=== PATIENT | female | born 1960 | race Caucasian/White ===

== ENCOUNTER 2016-08-18 11:11 | Outpatient (CLI) | payer OTHER | END 2016-08-18 11:12 | disposition home or self-care (01) | DX: R74.8 Abnormal levels of other serum enzymes (principal) ==

== ENCOUNTER 2016-08-27 11:23 | Outpatient (CLI) | payer OTHER | END 2016-08-27 11:24 | disposition home or self-care (01) | DX: R74.8 Abnormal levels of other serum enzymes (principal) ==

== ENCOUNTER 2016-08-27 11:24 | Outpatient (CLI) | payer OTHER | END 2016-08-27 11:25 | disposition home or self-care (01) | DX: Z12.31 Encounter for screening mammogram for malignant neoplasm of breast (principal) ==

== ENCOUNTER 2016-11-16 11:00 | Outpatient (CLI) | payer OTHER | END 2016-11-16 11:01 | disposition home or self-care (01) | DX: N39.0 Urinary tract infection, site not specified (principal) ==

== ENCOUNTER 2016-11-20 19:46 | Outpatient (CLI) | payer OTHER | END 2016-11-20 19:47 | disposition critical access hospital (66) | DX: R03.0 Elevated blood-pressure reading, without diagnosis of hypertension (principal) | CPT/HCPCS: A0425; A0427 ==

== ENCOUNTER 2016-11-20 20:07 | Emergency (ER) | payer OTHER ==
--- NOTE | 2016-11-20 20:45 | ED Physician Documentation ---
PD HPI CHEST PAIN - Stated complaint Stated Complaint: HIGH BP - Chief complaint Chief Complaint: Cardiac - History obtained from History obtained from: Patient - History of Present Illness Timing - onset: Enter time (18:30), Today Timing - onset during: Rest Timing - duration: Minutes Timing - details: Abrupt onset, Now resolved Pain level max: 8 Pain level now: 0 Quality: Pain Location: Substernal Radiation: Other (no radiation) Improved by: Nothing (resolved spontaneously) Worsened by: Other (no apparent exacerbating factors) Associated symptoms: Diaphoresis. No: Shortness of air, Nausea, Vomiting Similar symptoms before: Has not had sx before Recently seen: Not recently seen - Additional information Additional information: shortly after eating dinner, sudden onset substernal chest pain without exacerbating or ameliorating factors, resolved spontaneously within few minutes. Patient says she had unremarkable/negative nuclear stress test approximately 4 years ago. Review of Systems Constitutional: reports: Sweats. denies: Fever, Chills Cardiac: reports: Chest pain / pressure. 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 : None HEENT: None Psych: None Musculoskeletal: None Derm: None - Past Surgical History Past Surgical History: No - Present Medications Home Medications: Ambulatory Orders Medication Instructions Recorded Confirmed EPINEPHrine [Epipen] PRN 06/19/13 06/19/13 - Allergies Allergies/Adverse Reactions: Allergies Allergy/AdvReac Type Severity Reaction Status Date / Time peanut Allergy Severe Respiratory Verified 06/19/13 12:18 shellfish derived Allergy Severe Respiratory Verified 06/19/13 12:19 - Social History Does the pt smoke?: No Smoking Status: Never smoker Does the pt drink ETOH?: Yes Does the pt have substance abuse?: No - Immunizations Immunizations are current?: Yes PD ED PE NORMAL - Vitals Vital signs reviewed: Yes - General General: Alert and oriented X 3, No acute distress, Well developed/nourished - HEENT HEENT: Moist mucous membranes - Neck Neck: Supple, no meningeal sign - Cardiac Cardiac: RRR, No murmur, No gallop, No rub - Respiratory Respiratory: No respiratory distress, Clear bilaterally - Abdomen Abdomen: Soft, Non tender - Back Back: No CVA TTP - Derm Derm: Normal color, Warm and dry - Extremities Extremities: No edema Results - Vitals Vitals: Vital Signs - 24 hr 11/20/16 11/20/16 11/20/16 20:13 21:50 22:54 Temperature 37.2 C Heart Rate 70 64 89 Respiratory 18 16 16 Rate Blood Pressure 148/73 H 154/72 H 132/66 H O2 Saturation 98 98 99 Oxygen O2 Source Room air - Labs Labs: Laboratory Tests 11/20/16 11/20/16 11/20/16 21:15 21:15 21:15 WBC 6.0 RBC 4.60 Hgb 13.4 Hct 40.4 MCV 87.9 MCH 29.2 MCHC 33.2 RDW 12.3 Plt Count 255 MPV 9.5 Neut # 3.9 Lymph # 1.4 L [place] # 0.5 Eos # 0.1 Baso # 0.1 Absolute Nucleated RBC 0.00 Nucleated RBCs 0.0 Sodium 144 Potassium 3.6 Chloride 108 Carbon Dioxide 28 Anion Gap 8.0 BUN 15 Creatinine 0.6 Estimated GFR (MDRD) 103 Glucose 110 H Calcium 9.3 Total Bilirubin 0.5 AST 25 ALT 20 Alkaline Phosphatase 49 Troponin I < 0.04 Total Protein 6.9 Albumin 4.1 Globulin 2.8 Albumin/Globulin Ratio 1.5 Lipase 59 H - Rads (name of study) chest xray Radiology: Prelim report reviewed, See rad report PD MEDICAL DECISION MAKING - ED course Complexity details: reviewed results, re-evaluated patient, considered differential, d/w patient Departure - Departure Disposition: 01 Home, Self Care Clinical Impression: Chest pain Qualifiers: Chest pain type: unspecified Qualified Code(s): R07.9 - Chest pain, unspecified Hypertension Qualifiers: Hypertension type: essential hypertension Qualified Code(s): I10 - Essential ( primary) hypertension Condition: Good Instructions: ED Chest Pain Atypical Unkn Cause, ED HTN Established Comments: Follow up with your primary care physician: call to arrange for next available appointment Discharge Date/Time: 11/20/16 22:54
[2016-11-20 21:27] LABS: BASOPHILS # (AUTO) 0.1 10^3/uL (0.0-0.1); BASOPHILS % (AUTO) 1.2 %; EOSINOPHILS # (AUTO) 0.1 10^3/uL (0.0-0.7); EOSINOPHILS % (AUTO) 1.8 %; HCT - HEMATOCRIT 40.4 % (37.0-47.0); HGB - HEMOGLOBIN 13.4 g/dL (12.0-16.0); LYMPHOCYTES # (AUTO) 1.4 10^3/uL (1.5-3.5); LYMPHOCYTES % (AUTO) 23.5 %; MEAN CORPUSCULAR HEMOGLOBIN 29.2 pg (27.0-31.0); MEAN CORPUSCULAR HGB CONC 33.2 g/dL (32.0-36.0); MEAN CORPUSCULAR VOLUME 87.9 fL (81.0-99.0); MEAN PLATELET VOLUME 9.5 fL (7.9-10.8); MONOCYTES # (AUTO) 0.5 10^3/uL (0.0-1.0); MONOCYTES % (AUTO) 7.6 %; NEUTROPHILS # (AUTO) 3.9 10^3/uL (1.5-6.6); NEUTROPHILS % (AUTO) 65.9 %; RED CELL DISTRIBUTION WIDTH 12.3 % (12.0-15.0)
[2016-11-20 21:42] LABS: ALBUMIN/GLOBULIN RATIO 1.5 (1.0-2.2); BILIRUBIN,TOTAL 0.5 mg/dL (0.2-1.0); CALCIUM 9.3 mg/dL (8.5-10.3); CREATININE 0.6 mg/dL (0.4-1.0); POTASSIUM 3.6 mmol/L (3.5-5.0); TOTAL PROTEIN 6.9 g/dL (6.7-8.2)
--- NOTE | 2016-11-20 22:03 | XRAY Preliminary Report ---
Exam: XR Chest 2 View PA/LAT IMPRESSION: Normal 2-view chest radiography. [facility] SITE ID: [id number]
--- NOTE | 2016-11-20 22:06 | XRAY Report ---
EXAM: CHEST RADIOGRAPHY EXAM DATE: 11/20/2016 09:41 PM. CLINICAL HISTORY: Chest pain. COMPARISON: Chest 01/25/2007. TECHNIQUE: 2 views. FINDINGS: Lungs/Pleura: No focal opacities evident. No pleural effusion. No pneumothorax. Normal volumes. Mediastinum: Heart and mediastinal contours are unremarkable. Other: None. IMPRESSION: Normal 2-view chest radiography. [facility] Referring Provider Line: [phone] SITE ID: [id number]
[2016-11-20 22:55] VITALS: BP 132/66
== END 2016-11-20 22:54 | disposition home or self-care (01) ==
LOC: EDUNIT# → ED 20:07
DX: I10 Essential (primary) hypertension (principal); R07.9 Chest pain, unspecified
CPT/HCPCS: 36415; 71020; 80053; 83690; 84484; 85025; 93005; 99284

== ENCOUNTER 2016-11-25 17:51 | Outpatient (CLI) | payer OTHER | END 2016-11-25 17:52 | disposition home or self-care (01) | DX: D25.2 Subserosal leiomyoma of uterus (principal); R10.2 Pelvic and perineal pain; R39.15 Urgency of urination ==

== ENCOUNTER 2016-12-13 14:40 | Outpatient (CLI) | payer OTHER ==
[2016-12-13] MEDS ORDERED: IOPAMIDOL-300 100 ML VIAL IVP ONE (16:16)
[2016-12-13] MEDS ORDERED: IOPAMIDOL-300 50 ML VIAL PO ONE (16:16)
== END 2016-12-13 14:41 | disposition home or self-care (01) ==
DX: R10.13 Epigastric pain (principal); R10.32 Left lower quadrant pain
CPT/HCPCS: 74177; Q9967

== ENCOUNTER 2016-12-18 12:09 | Emergency (ER) | payer OTHER ==
--- NOTE | 2016-12-18 12:45 | ED Physician Documentation ---
PD HPI CHEST PAIN - Stated complaint Stated Complaint: HIGH BP - Chief complaint Chief Complaint: Cardiac - History obtained from History obtained from: Patient, Family - History of Present Illness Timing - onset: Other (Over the last few months she's had new-onset high blood pressure. She was started on lisinopril dose was rapidly increased. Today she has a mild headache and just doesn't feel well and she checked her blood pressure was 180/100 at home or so. She denies any new or different chest pain , she does have chronic reflux. No urinary complaints, dyspnea, or pedal edema. 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 : None HEENT: None Psych: None Musculoskeletal: None Derm: None - Past Surgical History Past Surgical History: No - Present Medications Home Medications: Ambulatory Orders Medication Instructions Recorded Confirmed EPINEPHrine [Epipen] PRN 06/19/13 06/19/13 Lisinopril 20 mg PO BID 12/18/16 12/18/16 - Allergies Allergies/Adverse Reactions: Allergies Allergy/AdvReac Type Severity Reaction Status Date / Time peanut Allergy Severe Respiratory Verified 06/19/13 12:18 shellfish derived Allergy Severe Respiratory Verified 06/19/13 12:19 Penicillins Allergy Rash Verified 12/18/16 12:18 - Social History Does the pt smoke?: No Smoking Status: Never smoker Does the pt drink ETOH?: Yes Does the pt have substance abuse?: No - Immunizations Immunizations are current?: Yes - POLST Patient has POLST: No PD ED PE NORMAL - Vitals Vital signs reviewed: Yes (BP 155/91 on my eval) - General General: Alert and oriented X 3, No acute distress - HEENT HEENT: PERRL, EOMI - Neck Neck: Supple, no meningeal sign, No JVD - Cardiac Cardiac: RRR, No murmur - Respiratory Respiratory: No respiratory distress, Clear bilaterally - Extremities Extremities: No edema - Neuro Neuro: Alert and oriented X 3, Normal speech - Psych Psych: Normal mood, Normal affect Results - Vitals Vitals: Vital Signs - 24 hr 12/18/16 12/18/16 12/18/16 12:15 13:04 13:35 Temperature 36.8 C Heart Rate 70 65 65 Respiratory 18 18 18 Rate Blood Pressure 197/83 H 142/63 H 115/79 O2 Saturation 98 98 97 12/18/16 14:16 Temperature Heart Rate 62 Respiratory 18 Rate Blood Pressure 119/64 O2 Saturation 98 Oxygen O2 Source Room air - EKG (time done) 1225 Rate: Rate (enter#) (67) Rhythm: NSR [place]: Normal Intervals: Normal [place] QRS: Normal Ischemia: Normal ST segments Computer interpretation: Disagree with computer (it reads complete heart block) - Labs Labs: Laboratory Tests 12/18/16 12/18/16 12:54 12:54 Sodium 142 Potassium 3.8 Chloride 108 Carbon Dioxide 28 Anion Gap 6.0 BUN 10 Creatinine 0.6 Estimated GFR (MDRD) 103 Glucose 112 H Calcium 9.1 Troponin I < 0.04 PD MEDICAL DECISION MAKING - ED course ED course: She presents with complaints of hypertension home as well as some mild ill feeling symptoms. Blood pressure high on arrival but drifted down to 115/79 without specific intervention and discussed followup with her physician. There is no evidence of endorgan damage. Departure - Departure Disposition: 01 Home, Self Care Clinical Impression: Hypertension Qualifiers: Hypertension type: essential hypertension Qualified Code(s): I10 - Essential ( primary) hypertension Condition: Good Record reviewed to determine appropriate education?: Yes Instructions: ED HTN Established Comments: Followup with your primary care physician early this week for recheck, possible blood pressure medication adjustments. Discuss potential workup for renal artery stenosis and/or pheochromocytoma ( I think this is very unlikely). Discharge Date/Time: 12/18/16 14:17
[2016-12-18 13:23] LABS: CALCIUM 9.1 mg/dL (8.5-10.3); CREATININE 0.6 mg/dL (0.4-1.0); POTASSIUM 3.8 mmol/L (3.5-5.0)
[2016-12-18 14:17] VITALS: BP 119/64
== END 2016-12-18 14:17 | disposition home or self-care (01) ==
LOC: ED 12:09
DX: I10 Essential (primary) hypertension (principal)
CPT/HCPCS: 36415; 80048; 84484; 93005; 93010; 99283

== ENCOUNTER 2016-12-25 11:08 | Outpatient (CLI) | payer OTHER | END 2016-12-25 11:09 | disposition home or self-care (01) | LOC: DI 11:08 | PROVIDERS: ATTEND Physician Assistant Medical | DX: I10 Essential (primary) hypertension (principal) | CPT/HCPCS: 93306 ==

== ENCOUNTER 2016-12-27 16:51 | Outpatient (CLI) | payer OTHER ==
--- NOTE | 2016-12-28 15:13 | Ultrasound Report ---
DUPLEX EXAMINATION OF THE RENAL ARTERIES: 12/27/2016 CLINICAL HISTORY: A 56-year-old female with hypertension. TECHNIQUE: Real-time sonographic vascular imaging was performed by the government documents librarian through the renal arteries utilizing both color-flow and Doppler flow analysis. Multiple banking representative static images were saved for review. RT KIDNEY LT KIDNEY Size: 10.4 x 6.1 x 5.6 cm Size: 10.5 x 6.1 x 6.0 cm SEGMENTAL ARTERY SEGMENTAL ARTERY PSV RI PSV RI Upper Pole 59.4 .61 Upper Pole 46.8 .69 Mid Pole 50.8 .68 Mid Pole 57.9 .59 Lower Pole 55.6 .65 Lower Pole 38.4 .60 RIGHT RENAL ARTERY LEFT RENAL ARTERY PSV RA/AO PSV RA/AO Origin: 130.7 1.6 Origin: 94.3 1.17 Proximal: 235.0 2.9 Proximal: 134.7 1.6 Mid: 74.6 .93 Mid: 187.8 2.3 Distal: 60.9 .76 Distal: 86.2 1.07 PROX AORTA PSV: 80 RRV patent Yes LRV patent Yes CRITERIA FOR CLASSIFICATION OF RENAL ARTERY DISEASE BY DUPLEX SCANNING RENAL ARTERY DIAMETER REDUCTION RENAL ARTERY PSV RAR Normal < 180 cm/sec <3.5 < 60 % >180 cm/sec <3.5 < 60 % >180 cm/sec <3.5 Occlusion (100)% No signal No signal FINDINGS: Right kidney shows no pyelocaliceal system dilatation. Right renal artery ultrasound demonstrates a less than 60% stenosis in the proximal right renal artery. Doppler values within the proximal right renal artery demonstrate a peak systolic velocity of 235 cm/sec with a renal artery/aortic ratio of 2.9. Left kidney demonstrates no significant pyelocaliceal system distention. Left renal artery ultrasound demonstrates a mild stenosis in its mid aspect with a peak systolic velocity of 187.8 cm/sec and a renal artery/aortic ratio of 2.3. IMPRESSION: 1. THE KIDNEYS ARE OF NORMAL SIZE WITHOUT SIGNIFICANT PYELOCALICEAL SYSTEM DISTENTION. 2. RIGHT RENAL ARTERY DEMONSTRATES A LESS THAN 60% STENOSIS IN ITS PROXIMAL ASPECT. 3. LEFT RENAL ARTERY DEMONSTRATES A LESS THAN 60% STENOSIS IN ITS MID ASPECT. 4. RENAL VEINS BILATERALLY APPEAR NORMAL. [facility]
== END 2016-12-27 16:52 | disposition home or self-care (01) ==
LOC: DI 16:51
PROVIDERS: ATTEND Physician Assistant Medical
DX: I70.1 Atherosclerosis of renal artery (principal)
CPT/HCPCS: 93975

== ENCOUNTER 2017-01-13 10:43 | Outpatient (CLI) | payer OTHER ==
[2017-01-13 19:21] LABS: CALCIUM 9.3 mg/dL (8.5-10.3); CREATININE 0.7 mg/dL (0.4-1.0); POTASSIUM 3.9 mmol/L (3.5-5.0)
== END 2017-01-13 10:44 ==
LOC: LAB.WCP 10:43
PROVIDERS: ATTEND Physician Assistant Medical
DX: Z51.81 Encounter for therapeutic drug level monitoring (principal)
CPT/HCPCS: 36415; 80048

== ENCOUNTER 2017-10-11 09:46 | Emergency (ER) | payer OTHER ==
[2017-10-11 10:10] LABS: BASOPHILS # (AUTO) 0.1 10^3/uL (0.0-0.1); BASOPHILS % (AUTO) 1.1 %; EOSINOPHILS # (AUTO) 0.1 10^3/uL (0.0-0.7); EOSINOPHILS % (AUTO) 1.6 %; LYMPHOCYTES # (AUTO) 1.4 10^3/uL (1.5-3.5); LYMPHOCYTES % (AUTO) 25.4 %; MEAN CORPUSCULAR HEMOGLOBIN 29.6 pg (27.0-31.0); MEAN CORPUSCULAR HGB CONC 33.7 g/dL (32.0-36.0); MEAN CORPUSCULAR VOLUME 87.8 fL (81.0-99.0); MEAN PLATELET VOLUME 8.2 fL (7.9-10.8); MONOCYTES # (AUTO) 0.5 10^3/uL (0.0-1.0); MONOCYTES % (AUTO) 8.5 %; NEUTROPHILS # (AUTO) 3.6 10^3/uL (1.5-6.6); NEUTROPHILS % (AUTO) 63.4 %; PLT - PLATELET COUNT 316 10^3/uL (130-450); RED BLOOD COUNT 4.72 10^6/uL (4.20-5.40); RED CELL DISTRIBUTION WIDTH 12.4 % (12.0-15.0); WHITE BLOOD COUNT 5.7 x10^3/uL (4.8-10.8)
[2017-10-11 10:19] LABS: ALBUMIN 4.5 g/dL (3.2-5.5); ALBUMIN/GLOBULIN RATIO 1.4 (1.0-2.2); BILIRUBIN,TOTAL 0.7 mg/dL (0.2-1.0); CALCIUM 9.7 mg/dL (8.5-10.3); CREATININE 0.7 mg/dL (0.4-1.0); TOTAL PROTEIN 7.8 g/dL (6.7-8.2)
--- NOTE | 2017-10-11 11:07 | XRAY Report ---
EXAM: CHEST RADIOGRAPHY EXAM DATE: 10/11/2017 10:33 AM. CLINICAL HISTORY: Chest pain. COMPARISON: 11/20/2016. 11/23/2012. TECHNIQUE: 2 views. FINDINGS: Lungs/Pleura: No focal opacities evident. No pleural effusion. No pneumothorax. Normal volumes. Mediastinum: Heart size is normal. Aorta is mildly tortuous. Other: Degenerative changes of the thoracic spine. IMPRESSION: 1. No acute disease in the chest. [facility] Referring Provider Line: [phone] SITE ID: [id number]
--- NOTE | 2017-10-11 11:33 | ED Physician Documentation ---
PD HPI CHEST PAIN - Stated complaint Stated Complaint: L SHLDR,BACK PX - Chief complaint Chief Complaint: Cardiac - History obtained from History obtained from: Patient, Family - History of Present Illness Timing - onset: Last night Timing - onset during: Rest Timing - duration: Days (1) Timing - details: Gradual onset, Still present Quality: Aching, Sharp Location: Left chest, Left shoulder/arm Radiation: Back Improved by: Rest Worsened by: Movement, Palpation, Position Associated symptoms: No: Shortness of air, Diaphoresis, Nausea, Vomiting, Feeling faint / dizzy, General Weakness, Palpitations Similar symptoms before: Has not had sx before Recently seen: Not recently seen - Additional information Additional information: 57-year-old female did a lot of gardening work over the weekend spent about 9 hours on Tuesday outside working and Tuesday as well with a lot of heavy lifting. She did not drink much in the way of fluids over that period of time as well. She began to have some symptoms of pain in her shoulder and arm and left chest wall last night after dinner. The pain is mounted when she called her doctor the asked her to come to the emergency department for evaluation. Review of Systems Constitutional: denies: Fever, Chills Eyes: denies: Decreased vision Ears: denies: Ear pain Nose: denies: Congestion Throat: denies: Sore throat Cardiac: reports: Chest pain / pressure. denies: Palpitations Respiratory: denies: Dyspnea, Cough GI: denies: Abdominal Pain, Nausea, Vomiting : denies: Dysuria, Frequency Skin: denies: Rash Musculoskeletal: reports: Back pain, Extremity pain. 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 : None HEENT: None Psych: None Musculoskeletal: None Derm: None Other Past Medical History: Hiatal hernia - Past Surgical History Past Surgical History: No - Present Medications Home Medications: Ambulatory Orders Medication Instructions Recorded Confirmed EPINEPHrine [Epipen] PRN 06/19/13 06/19/13 Lisinopril 20 mg PO BID 12/18/16 12/18/16 Cyclobenzaprine [Flexeril] 10 mg PO TID PRN #20 tablet 10/11/17 HYDROcod/ACETAM 5/325 [[place] 5/325] 1 - 2 ea PO Q6H PRN #15 tablet 10/11/17 Hydrochlorothiazide 12.5 mg PO DAILY 10/11/17 10/11/17 - Allergies Allergies/Adverse Reactions: Allergies Allergy/AdvReac Type Severity Reaction Status Date / Time peanut Allergy Severe Respiratory Verified 06/19/13 12:18 shellfish derived Allergy Severe Respiratory Verified 06/19/13 12:19 Penicillins Allergy Rash Verified 12/18/16 12:18 fexofenadine [From Adriana] AdvReac Emesis Verified 10/11/17 09:59 - Social History Does the pt smoke?: No Smoking Status: Never smoker Does the pt drink ETOH?: Yes Does the pt have substance abuse?: No - Immunizations Immunizations are current?: Yes - POLST Patient has POLST: No PD ED PE NORMAL - Vitals Vital signs reviewed: Yes (Hypertensive mild) - General General: Alert and oriented X 3, No acute distress, Well developed/nourished - HEENT HEENT: Atraumatic, PERRL, EOMI - Neck Neck: Supple, no meningeal sign, No bony TTP - Cardiac Cardiac: RRR, No murmur - Respiratory Respiratory: No respiratory distress, Clear bilaterally, Other (There is chest wall tenderness to the lateral left chest wall that reproduces the pain patient is experiencing. There is pain as well over the rhomboid muscles on the left side.) - Abdomen Abdomen: Soft, Non tender - Back Back: No CVA TTP, No spinal TTP - Derm Derm: Normal color, Warm and dry, No rash - Extremities Extremities: No deformity, No edema - Neuro Neuro: Alert and oriented X 3, staff appraiser 2-12 intact, No motor deficit, No sensory deficit, Normal speech Eye Opening: Spontaneous Motor: Obeys Commands Verbal: Oriented GCS Score: 15 - Psych Psych: Normal mood, Normal affect Results - Vitals Vitals: Vital Signs - 24 hr 10/11/17 10/11/17 10/11/17 09:52 11:54 12:14 Temperature 36.8 C Heart Rate 66 61 55 L Respiratory 20 14 17 Rate Blood Pressure 139/83 H 134/74 H 112/66 O2 Saturation 98 98 97 Oxygen O2 Source Room air - EKG (time done) 0955 Rate: Rate (enter#) (66) Ischemia: Normal ST segments Other comments: Other comments (flat T's) Compare to prior EKG: Unchanged from prior EKG (12-18-16) Computer interpretation: Agree with computer - Labs Labs: Laboratory Tests 10/11/17 10/11/17 10/11/17 09:57 09:57 09:57 WBC 5.7 RBC 4.72 Hgb 14.0 Hct 41.4 MCV 87.8 MCH 29.6 MCHC 33.7 RDW 12.4 Plt Count 316 MPV 8.2 Neut # 3.6 Lymph # 1.4 L [place] # 0.5 Eos # 0.1 Baso # 0.1 Absolute Nucleated RBC 0.00 Nucleated RBC % 0.1 Sodium 139 Potassium 3.5 Chloride 102 Carbon Dioxide 28 Anion Gap 9.0 BUN 13 Creatinine 0.7 Estimated GFR (MDRD) 86 L Glucose 105 H Calcium 9.7 Total Bilirubin 0.7 AST 31 ALT 24 Alkaline Phosphatase 42 Troponin I < 0.04 Total Protein 7.8 Albumin 4.5 Globulin 3.3 Albumin/Globulin Ratio 1.4 Lipase 33 - Rads (name of study) 2 veiw chest Radiology: Prelim report reviewed (Impression: 1. No acute disease in the chest.), EMP read indepedently, See rad report Procedures - IVC sono (time) 1135 Bedside IVC sono: IVC measures (cm) (0.88), IVC collapsed c insp (cm) (complete) , Dehydration (est <2 liters) PD MEDICAL DECISION MAKING - ED course Complexity details: reviewed results, re-evaluated patient, considered differential, d/w patient, d/w family ED course: 57 -year-old female with left-sided chest pain appears to have musculoskeletal pain in origin. She has chest wall tenderness to palpation reproducing her pain and pain with movement of the left arm that reproduces her pain. She has normal echocardiogram and normal troponin normal chest x-ray. She does have a history of excessive use of the left arm and she is found to be clinically dehydrated on interrogation of the inferior vena cava. She is administered a liter of saline 30 mg of Toradol and 10 mg of dexamethasone intravenously. Departure - Departure Disposition: 01 Home, Self Care Clinical Impression: Rhomboid muscle pain, Dehydration Muscle strain of chest wall Qualifiers: Encounter type: initial encounter Qualified Code(s): S29.011A - Strain of muscle and tendon of front wall of thorax, initial encounter Condition: Stable Instructions: ED Dehydration, ED Spasm Muscle Follow-Up: [facility] [Provider Group] Prescriptions: Cyclobenzaprine [Flexeril] 10 mg PO TID PRN #20 tablet PRN Reason: Spasms HYDROcod/ACETAM 5/325 [[place] 5/325] 1 - 2 ea PO Q6H PRN #15 tablet PRN Reason: Pain
[2017-10-11] MEDS ORDERED: SODIUM CHLORIDE 0.9% 1,000 ML IV ONE (11:43)
[2017-10-11] MEDS ORDERED: KETOROLAC 60 MG/2 ML VIAL IVP STA (11:43)
[2017-10-11] MEDS ORDERED: DEXAMETHASONE 10 MG/ML VIAL IVP STA (11:43)
[2017-10-11 12:15] VITALS: BP 112/66
== END 2017-10-11 12:46 | disposition home or self-care (01) ==
LOC: ED 09:46
DX: S29.011A Strain of muscle and tendon of front wall of thorax, initial encounter (principal); X50.0XXA Overexertion from strenuous movement or load, initial encounter; Y93.H2 Activity, gardening and landscaping; M79.1 Myalgia; E86.0 Dehydration; I10 Essential (primary) hypertension; K21.9 Gastro-esophageal reflux disease without esophagitis
CPT/HCPCS: 36415; 71046; 80053; 83690; 84484; 85025; 93005; 96361; 96374; 96375; 99283; 99284

== ENCOUNTER 2018-04-05 15:36 | Outpatient (CLI) | payer OTHER ==
--- NOTE | 2018-04-06 03:56 | Ultrasound Report ---
Reason: MENORRHAGIA, POSTMENOPAUSAL Procedure Date: 04/05/2018 Accession Number: [id number] / [id number] Procedure: US - Pelvic w/Transvaginal CPT Code: FULL RESULT: EXAM: PELVIC ULTRASOUND EXAM DATE: 04/05/2018 05:12 PM. CLINICAL HISTORY: MENORRHAGIA, POSTMENOPAUSAL. COMPARISON: 11/25/2016. TECHNIQUE: Realtime transabdominal pelvic scan performed to identify the uterus and adnexa and as an overview of other pelvic structures, followed by transvaginal scan to provide greater detail of the uterus and adnexa, with static image documentation. FINDINGS: Uterus: 8.9 x 5.5 x 3.7 cm, volume 94 cc. Anteverted position. Normal overall size and echotexture. Masses: None. Endometrium: 4 mm. Normal. Cervix: Unremarkable. Right Ovary: 3.6 x 1.7 x 1.4 cm, volume 4 cc. 1.3 cm cyst. Left Ovary: 2.4 x 1.5 x 1.3 cm, volume 2 cc. Normal echotexture and blood flow. Free Fluid: None. Other: None. IMPRESSION: No evidence of endometrial hyperplasia. 1.3 cm right ovarian cyst. [facility]
== END 2018-04-05 15:37 | disposition home or self-care (01) ==
LOC: DI 15:36
PROVIDERS: ATTEND Physician Assistant Medical
DX: N95.0 Postmenopausal bleeding (principal); Z78.0 Asymptomatic menopausal state
CPT/HCPCS: 76830; 76856

== ENCOUNTER 2018-07-14 08:00 | Outpatient (CLI) | payer OTHER | END 2018-07-14 23:59 | disposition home or self-care (01) | LOC: LAB.WCP 08:00 | PROVIDERS: ATTEND Physician Assistant Medical | DX: E53.8 Deficiency of other specified B group vitamins (principal) | CPT/HCPCS: 36415; 82607 ==

== ENCOUNTER 2019-04-20 08:07 | Outpatient (CLI) | payer OTHER ==
[2019-04-20 12:37] LABS: BASOPHILS % (AUTO) 0.6 %; EOSINOPHILS # (AUTO) 0.1 10^3/uL (0.0-0.7); EOSINOPHILS % (AUTO) 1.7 %; HGB - HEMOGLOBIN 12.9 g/dL (12.0-16.0); LYMPHOCYTES # (AUTO) 1.5 10^3/uL (1.5-3.5); LYMPHOCYTES % (AUTO) 20.9 %; MEAN CORPUSCULAR HEMOGLOBIN 29.5 pg (27.0-31.0); MEAN CORPUSCULAR HGB CONC 31.5 g/dL (32.0-36.0); MEAN CORPUSCULAR VOLUME 93.6 fL (81.0-99.0); MONOCYTES # (AUTO) 0.5 10^3/uL (0.0-1.0); MONOCYTES % (AUTO) 6.9 %; NEUTROPHILS # (AUTO) 4.8 10^3/uL (1.5-6.6); NEUTROPHILS % (AUTO) 69.5 %; PLT - PLATELET COUNT 314 10^3/uL (130-450); RED BLOOD COUNT 4.38 10^6/uL (4.20-5.40); RED CELL DISTRIBUTION WIDTH 12.3 % (12.0-15.0); WHITE BLOOD COUNT 6.9 x10^3/uL (4.8-10.8)
[2019-04-20 13:02] LABS: ALBUMIN 3.8 g/dL (3.2-5.5); ALBUMIN/GLOBULIN RATIO 1.3 (1.0-2.2); ALKALINE PHOSPHATASE 49 IU/L (42-121); ALT ALANINE AMINOTRANSFERASE 19 IU/L (10-60); AST ASPARTATE AMINOTRANSFERASE 24 IU/L (10-42); BILIRUBIN,TOTAL 0.7 mg/dL (0.2-1.0); BUN - BLOOD UREA NITROGEN 12 mg/dL (6-20); CARBON DIOXIDE - CO2 28 mmol/L (21-32); CHLORIDE 108 mmol/L (101-111); CHOLESTEROL 146 mg/dL; CREATININE 0.6 mg/dL (0.4-1.0); GFR - MDRD 102 (>89); GLUCOSE 95 mg/dL (70-100); HDL CHOLESTEROL 29 mg/dL; LDL CHOLESTEROL,CALCULATED 103 mg/dL; LDL/HDL RATIO 3.6 (<4.4); SODIUM 143 mmol/L (135-145); TOTAL PROTEIN 6.8 g/dL (6.7-8.2); VLDL CHOLESTEROL 14 mg/dL
== END 2019-04-20 23:59 | disposition home or self-care (01) ==
LOC: LAB.WCP 08:07
PROVIDERS: ATTEND Physician Assistant Medical
DX: Z00.00 Encounter for general adult medical examination without abnormal findings (principal); E53.8 Deficiency of other specified B group vitamins
CPT/HCPCS: 36415; 80053; 80061; 82607; 83721; 84443; 85025